=== PATIENT | female | born 1960 | race American Indian/Alaskan Native ===

== ENCOUNTER 2016-10-18 07:58 | Emergency (ER) | payer MEDICAID ==
[2016-10-18 08:10] VITALS: BMI 29.1
--- NOTE | 2016-10-18 08:13 | ED PDOC ---
Arrival/HPI - General Time Seen by Provider: 10/18/16 08:03 Historian: Patient - History of Present Illness Narrative History of Present Illness (Text): 10/18/16 08:11 A 56 year old female, whose past medical history includes hypertension and lupus , presents to the emergency department complaining of right ankle pain and swelling for a couple days. Patient reports couple days ago as she was on her way to [facility], she began to notice her ankle was swollen. Patient denies of any injuries, or any other complaints. Also, she mentions she takes Metoprolol, Microzide, and Ibuprofen. No PMD Time/Duration: < week (couple days) Symptom Onset: Gradual Symptom Course: Unchanged Associated Symptoms (Text): 10/18/16 08:39 Patient complains of right ankle pain and swelling for the last few days with no known injury or trauma. The pain extends from her proximal biggs distally. She has a history of lupus and rheumatoid arthritis and is currently taking only nonsteroidal anti-inflammatory medication for this problem. No fever or chills. No skin changes. No chest pain or dyspnea. Past Medical History - Provider Review Nursing Documentation Reviewed: Yes Family/Social History - Physician Review Nursing Documentation Reviewed: Yes Family/Social History: No Known Family HX Smoking Status: Never Smoked Hx Alcohol Use: No Hx Substance Use: No Allergies/Home Meds Allergies/Adverse Reactions: Allergies Penicillins Allergy (Verified 10/18/16 08:12) RASH Home Medications: Home Meds Medication Instructions Recorded Confirmed Ibuprofen [Motrin Tab] 600 mg PO TID 10/18/16 10/18/16 Metoprolol Tartrate [Lopressor] 50 mg PO BID 10/18/16 10/18/16 hydroCHLOROthiazide [Microzide] 12.5 mg PO DAILY 10/18/16 10/18/16 Review of Systems - Physician Review All systems were reviewed & negative as marked: Yes - Review of Systems Constitutional: absent: Fevers, Night Sweats Respiratory: absent: SOB Cardiovascular: absent: Chest Pain Gastrointestinal: absent: Diarrhea, Nausea, Vomiting Musculoskeletal: Joint Swelling (right ankle swelling with associated pain) Physical Exam Vital Signs Reviewed: Yes Vital Signs Temp Pulse Resp BP Pulse Ox 10/18/16 08:24 97.9 F 78 16 130/81 100 Temperature: Afebrile Blood Pressure: Normal Pulse: Regular Respiratory Rate: Normal Appearance: Positive for: Well-Appearing Pain Distress: None Mental Status: Positive for: Alert and Oriented X 3 - Systems Exam Head: Present: Atraumatic, Normocephalic Pupils: Present: PERRL Extroacular Muscles: Present: EOMI Conjunctiva: Present: Normal Mouth: Present: Moist Mucous Membranes Neck: Present: Normal Range of Motion Respiratory/Chest: Present: Clear to Auscultation, Good Air Exchange. No: Respiratory Distress, Accessory Muscle Use Cardiovascular: Present: Regular Rate and Rhythm, Normal S1, S2. No: Murmurs Abdomen: Present: Normal Bowel Sounds. No: Tenderness, Distention, Peritoneal Signs Back: Present: Normal Inspection Upper Extremity: Present: Normal Inspection. No: Cyanosis, Edema Lower Extremity: Present: Edema, CALF TENDERNESS, NORMAL PULSES, Normal ROM, Tenderness, Swelling (right ankle swollen, no warmth), Neurovascularly Intact, Other (mild calf "tightness" on palpation, right ankle swelling and edema with no erythema or warmth but mild tenderness). No: Erythema Neurological: Present: GCS=15, CN II-XII Intact, Speech Normal Skin: Present: Warm, Dry, Normal Color. No: Rashes Psychiatric: Present: Alert, Oriented x 3, Normal Insight, Normal Concentration Medical Decision Making ED Course and Treatment: 10/18/16 08:16 Impression: 56 year old female with right ankle swelling and pain. Physical exam shows mild calf "tightness" on palpation; right ankle swollen, no warmth, no erythema. Plan: -- Duplex Lower Extremity Ultrasound -- Right Ankle X-Ray -- Toradol -- Reassess and disposition Progress Notes: 10/18/16 09:13 Right ankle 3 view shows an old medial malleolus fracture. No new fracture. 10/18/16 09:18 Minimal improvement with Toradol. Her x-rays and ultrasound are negative. Patient will be treated with steroids and pain medication with crutches for her exacerbation of rheumatoid arthritis. - RAD Interpretation Radiology Orders: 10/18/16 08:16 DUPLEX LOWER EXTRM VEIN RIGHT [US] Stat 10/18/16 08:17 ANKLE RIGHT 3 VIEWS ROUTINE [RAD] Stat Venous Doppler of the right lower extremity as read by the radiologist is negative for DVT. Therapy Administrative Assistant: Radiologist - Medication Orders Current Medication Orders: Discontinued Medications Ketorolac Tromethamine (Toradol) 60 mg IM ONCE ONE Stop: 10/18/16 08:17 Last Admin: 10/18/16 08:29 Dose: 60 mg Prednisone (Prednisone Tab) 60 mg PO STAT ONE Stop: 10/18/16 09:23 - Scribe Statement The provider has reviewed the documentation as recorded by the Pat Hussein Provider Scribe Attestation: All medical record entries made by the Jonnibguerita were at my direction and personally dictated by me. I have reviewed the chart and agree that the record accurately reflects my personal performance of the history, physical exam, medical decision making, and the department course for this patient. I have also personally directed, reviewed, and agree with the discharge instructions and disposition. Disposition/Present on Arrival - Present on Arrival Any Indicators Present on Arrival: No History of DVT/PE: No History of Uncontrolled Diabetes: No Urinary Catheter: No History of Decub. Ulcer: No - Disposition Have Diagnosis and Disposition been Completed?: Yes Diagnosis: Rheumatoid arthritis involving ankle, Rheumatoid arthritis flare Disposition: HOME/ ROUTINE Disposition Time: 09:19 Patient Plan: Discharge Patient Problems: Current Active Problems Problem Status Onset Rheumatoid arthritis flare Acute Rheumatoid arthritis involving ankle Acute Condition: GOOD Discharge Instructions (ExitCare): Rheumatoid Arthritis (ED) Additional Instructions: Rest moist heat and elevation. 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 Follow up in ER as needed. Prescriptions: Prednisone [Deltasone] 40 mg PO DAILY #10 tablet Tramadol HCl [Ultram] 50 mg PO Q6 PRN #20 tab PRN Reason: Pain
[2016-10-18 08:27] VITALS: PULSE 78; RESP 16; TEMP 97.9
--- NOTE | 2016-10-18 09:35 | RAD ---
PROCEDURE: Right Ankle Radiographs. HISTORY: swelling COMPARISON: None available. FINDINGS: BONES: Ossific fragment distal to the medial common bile likely related to remote injury rather than acute fracture fragment. Tiny ossific density superior to the talus may be related to remote injury as well; tiny avulsion fracture cannot be entirely excluded. Correlate clinically. The remainder the visualized osseous structures appear intact without acute displaced fracture. Postsurgical changes possibly related to osteotomy of the 1st metatarsal with metallic screw present. JOINTS: No dislocation. SOFT TISSUES: Soft tissue swelling. No evidence of radiopaque foreign body. OTHER FINDINGS: None. IMPRESSION: Ossific fragment distal to the medial common bile likely related to remote injury rather than acute fracture fragment. Tiny ossific density superior to the talus may be related to remote injury as well; tiny avulsion fracture cannot be entirely excluded. Correlate clinically. Soft tissue swelling.
[2016-10-18 09:40] VITALS: BP 142/95; O2SAT 98
--- NOTE | 2016-10-18 10:07 | US ---
PROCEDURE: Right lower extremity venous US HISTORY: Leg pain and swelling. Evaluate for DVT. PHYSICIAN(S): Jaret Meehan M.D. TECHNIQUE: Duplex sonography and color-flow Doppler with graded compression were used to evaluate the deep venous system of the right lower extremity. FINDINGS: The visualized deep venous system of the right lower extremity is sonographically normal and compressible. Normal waveforms and augmentation are seen. There is no sonographic evidence for deep venous thrombosis in the visualized segments of the right lower extremity. IMPRESSION: 1. No sonographic evidence for deep venous thrombosis in the visualized segments of the right lower extremity.
== END 2016-10-18 09:44 | disposition home or self-care (01) ==
LOC: ED 07:58
DX: M06.9 Rheumatoid arthritis, unspecified (principal); M32.9 Systemic lupus erythematosus, unspecified; Z88.0 Allergy status to penicillin
CPT/HCPCS: 73610; 93971; 96372; 99285; J1885